=== PATIENT | male | born 1965 | race Caucasian/White ===

== ENCOUNTER → 2021-03-29 14:26 | Outpatient (BNVA) | payer OTHER, SELFPAY | PROVIDERS: PCP Internal Medicine; Visit Provider Urology ==

== ENCOUNTER 2021-04-03 12:16 | Day surgery (SDC) | payer OTHER, SELFPAY ==
--- NOTE | ~2021-04-03 | FL_ITS ---
EXAMINATION: XR FLUOROSCOPY WITH IMAGES CLINICAL INFORMATION: Left kidney stone. COMPARISON: None. TECHNIQUE: Fluoroscopy performed by Dr. Tyler Baez Fluoroscopy time: 53.5 seconds DAP: 21.93 mGycm2 Images: 3 FINDINGS: 3 images obtained in the OR reveal contrast opacifying the left kidney pelvis and the proximal ureter. The subsequent images reveal a guidewire and the left kidney pelvis and likely ureteral stent being inserted with its tip in the proximal ureter. FL/FL guidance in OR IMPRESSION: Fluoroscopy was provided to Dr. Tyler Baez during urographic procedure.
[2021-04-03 14:14] VITALS: BP 146/88; PULSE 68; RESP 16; TEMP 36.5; O2SAT 98; BMI 31.3
[2021-04-03 14:30] LABS: COVID-19 Test Negative (Negative)
--- NOTE | 2021-04-03 15:52 | P.HPSUR_ITS ---
Pre-Procedural Eval Section A Date of Service: 04/03/21 Section B Chief Complaint: kidney stone Details of Present Illness: Left renal stone Relevant Social History: None Present Medications: see Short Stay Collaborative assessment Medical History: No relevant PMH History of Previous Operations: No relevant previous surgery Allergies: Allergies Allergy/AdvReac Type Severity Reaction Status Date / Time Rymqjau-Edd-Rby Reductase AdvReac Unknown Verified 04/03/21 14:12 Inhibitor Review of Systems Sugical H&P ROS: Negative: Constitution, Cardiovascular, Respiratory, Neurological, Psychiatric, Hem-Onc, Allergic/Immunologic, Gastrointestinal, Genitourinary, Musculoskeletal, Integumentary, Endocrine and Eyes/Ears/Nose/Throat Exam Surgical H&P Exam: Normal: HEENT, Normal: Heart, Normal: Lungs, Normal: E xtremities, Normal: Abdomen, Normal: Skin and Normal: Neurological Plan Diagnosis/Plan: Unchanged (Cystoscopy left ureteroscopy, left laser lithotripsy, stone basketing, stent placement) I have reviewed the history and physical and performed a pertinent physical examination on my patient. No changes have occurred unless specified.
[2021-04-03] MEDS: levoFLOXacin 500 MG TABLET PO (16:12)
--- NOTE | 2021-04-03 16:48 | P.CONAN_ITS ---
[facility] Active Problems Active Problems: All Active Problems (Updated 04/03/21 @ 14:09 by Saba [email or web address]) Nephrolithiasis (Acute) BPH w urinary obs/LUTS (Acute) Past Medical History Medical History HTN (hypertension) Family History Family history of problems with anesthesia: No Surgical History Surgical History History of appendectomy History of knee replacement procedure of right knee S/P ACL repair History of Problems with Anesthesia: No Social History Social History Alcohol intake: never Patient Tobacco Use Status: Former Tobacco user Quit Date: 1999 Tobacco use type: Cigarette Years Smoked: 25 Smoked in Last 30 Days: No Use of substances other than those prescribed or required for medical reasons: Yes Substance Use Frequency: Daily Are you DNR?: No Advance Directives: No Advance Directives Information Provided: Yes Meds Allergies Allergy/AdvReac Type Severity Reaction Status Date / Time Mkqhmng-Dbx-Uvo Reductase AdvReac Unknown Verified 04/03/21 14:12 Inhibitor Active Medications: Current Medications Generic Name Dose Route Start Last Admin Trade Name Freq PRN Reason Stop Dose Admin Lactated Ringer's 1,000 mls @ 20 mls/hr 04/03/21 17:00 Lr IVCONT .Q24H [facility] Home Medications Medication Instructions Recorded Confirmed Last Taken Type amlodipine 5 mg tablet 5 mg PO DAILY 03/29/21 04/03/21 05:30 History ezetimibe 10 mg tablet 10 mg PO DAILY 03/29/21 04/03/21 05:30 History levofloxacin 500 mg tablet 500 mg PO DAILY 03/29/21 Unknown History lisinopril 40 mg tablet 40 mg PO DAILY 03/29/21 04/03/21 05:30 History methylprednisolone 4 mg tablets in mg PO 03/29/21 Unknown History a dose pack nabumetone 750 mg tablet 750 mg PO BID 03/29/21 Unknown History tamsulosin 0.4 mg capsule 0.4 mg PO DAILY 03/29/21 04/03/21 05:30 History Advil 04/03/21 04/03/21 05:30 History 400 mg Exam Exam Date and Time: April 03, 2021 1648 Height,Weight and Vital Signs: Height 5 ft 7 in Weight 90.718 kg Last Vital Signs Temp 97.7 F 04/03/21 14:14 Pulse 68 04/03/21 14:14 Resp 16 04/03/21 14:14 BP 146/88 H 04/03/21 14:14 Pulse Ox 98 04/03/21 14:14 Pertinent Lab Results Pertinent Lab Results: Laboratory Tests 04/03/21 14:04 COVID-19 (THOR) Negative COVID-19 Clin Com See Note Airway Mallampati Class: II TM Dist: >3cm Neck ROM: Full Heart: rrr Lungs: cta Assessment and Plan Assessment Anesthesia Assessment: Anesthesia Plan Discussed and Chart Reviewed Final Anesthetic Review Family History of Problems with Anesthesia: No History of Problems with Anesthesia: No NPO: Yes ASA Class: II Final Preanesthetic Review: No Changes in Pt Med Stat, Meds/Allgs Chart Reviewed, Consent Obtained/Reviewed and Anes Risks/Benef Reviewed Patient Risk: Low Procedure Risk: Low Assessment/Block/Sedation in SS: Assess/Block/Sedation-SS Anesthetic Plan Anesthetic Plan: GA Disposition: Standard PACU
[2021-04-03] MEDS: Lactated Ringers 1,000 ML 20 ML IVCONT (17:08)
[2021-04-03 18:30] VITALS: BP 140/90; PULSE 72; RESP 17; TEMP 36.4; O2SAT 98
[2021-04-03 18:32] VITALS: BP 144/88; PULSE 72; RESP 18; O2SAT 97
[2021-04-03] MEDS: Phenazopyridine HCL 100 MG TABLET PO (18:39)
[2021-04-03 18:40] VITALS: BP 149/87; PULSE 71; RESP 16; O2SAT 95
[2021-04-03 18:45] VITALS: BP 149/87; PULSE 72; RESP 16; O2SAT 97
[2021-04-03 18:50] VITALS: BP 144/88; PULSE 68; RESP 16; O2SAT 97
[2021-04-03] MEDS: oxyCODONE HCl Immed Release 5 MG TABLET PO (19:17)
--- NOTE | 2021-04-03 19:40 | PC.NURSE ---
patient expressing urge to void. states it's cramping. patient ambulated to [facility] bathroom and unable to void. patient dressed and ready to go home but wanted to attempt to void again. after a second unsuccessful attempt, Dr. Baez paged and bladder scan was performed. Bladder scan was 37ml and communicated to Dr. Baez. orders to follow
[2021-04-03] MEDS: Ketorolac Tromethamine 15 MG/ML VIAL 30 MG IVPUSH (19:54)
[2021-04-08 00:41] LABS: Stone Source KIDNEY
--- NOTE | 2021-04-19 11:03 | P.OP_ITS ---
Operative Note Operative Note Date of Service: 04/03/21 Narrative: PreOperative Diagnosis: Left proximal ureteric stone Post Operative Diagnosis: Left mid ureteric stone Procedure: - cystoscopy, retrograde - left dilatation of ureteric orifice under fluoroscopy - left ureteroscopy, laser lithotripsy, stone basketing - left stent placement Surgeon: Dr Tyler Baez Anesthesia: General Indications for procedure: This is a 55-year-old male. Seen in the emergency room with a left proximal ureteric 9 mm stone. Persistent pain. Recommendation for ureteroscopy with laser lithotripsy and stent placement. He is aware of the risks and benefits. Procedure: After informed consent was verified patient was brought to the operating placed in supine position. Anesthesia was administered per protocol. Patient was placed in modified dorsal lithotomy position and prepped and draped in a sterile fashion. Safety pause time-out and side of surgery confirmed. Antibiotics confirmed. Twenty-two Romanian cystoscope inserted per urethra. No abnormality noted the anterior posterior urethra. Bladder was entered and both ureteric orifices normal position. Open-ended catheter was used to perform retrograde on the left side. Filling defects seen in the mid to distal ureter. Sensor guidewire placed without difficulty. The left ureteric orifice was then dilated using a Ck dilator. Semi rigid ureteroscopy was performed. Stone was encountered alongside the Sensor guidewire. Using a a holmium laser the stone was broken into small pieces. These were removed using a sure catch basket. After multiple passes had been made ensuring the ureter was free from debris a 6 Romanian by 24 cm stent was placed without difficulty. Good coil seen within the renal pelvis and in the bladder. Patient tolerated the procedure well was extubated in the operating room transferred in stable condition to the recovery area. Pathology: Stones Drains: 6 Romanian by 24 cm double-J catheter
== END 2021-04-03 18:46 | disposition home or self-care (01) ==
PROVIDERS: Anesthesiology; PCP Pediatrics; Visit Provider Urology
PROC: (CPT 52356; principal; 2021-04-03 15:50)
DX: N20.1 Calculus of ureter (principal); Z87.442 Personal history of urinary calculi; N40.1 Benign prostatic hyperplasia with lower urinary tract symptoms; N13.8 Other obstructive and reflux uropathy; I10 Essential (primary) hypertension; Z79.899 Other long term (current) drug therapy; Z88.8 Allergy status to other drugs, medicaments and biological substances; Z20.822 Contact with and (suspected) exposure to COVID-19; Z96.651 Presence of right artificial knee joint; Z87.891 Personal history of nicotine dependence
CPT/HCPCS: 52356; 52352; 36415; 82365; 87635; 88300; C1769; C2617; J1885; J2250; J3010; Q9967

== ENCOUNTER → 2021-04-14 12:43 | Outpatient (BNVA) | payer OTHER, SELFPAY | PROVIDERS: PCP Pediatrics; Visit Provider Urology ==

== ENCOUNTER 2021-06-06 15:43 | Outpatient (REF) | payer OTHER, SELFPAY ==
--- NOTE | ~2021-06-06 | US_ITS ---
EXAMINATION: US RETROPERITONEAL LIMITED (RENAL ONLY) CLINICAL INFORMATION: Calculus of kidney. COMPARISON: None TECHNIQUE: Real-time imaging of the kidneys. FINDINGS: RIGHT KIDNEY: 11.1 x 7.0 x 5.2 cm (SAG x AP x TRV). The kidney is normal in size, contour, and echogenicity. Renal cortical thickness is normal. No calculi or focal parenchymal lesions. No hydronephrosis. There are multiple punctate echogenic calcifications seen without twinkle artifact. LEFT KIDNEY: 11.5 x 6.3 x 5.4 cm (SAG x AP x TRV). The kidney is normal in size, contour, and echogenicity. Renal cortical thickness is normal. No renal calculi or hydronephrosis. There are anechoic cysts. Midpole cyst medially measures 4.3 x 5.0 x 4.0 cm. An upper pole cyst measures 1.1 x 0.8 x 0.7 cm. There is mild pelvic fullness seen. US/US renal BI IMPRESSION: Multiple punctate calcifications seen throughout the right kidney. No echogenic stone or hydronephrosis. Left renal cyst and multiple punctate calcifications without caliectasis or hydronephrosis.
== END 2021-06-06 15:44 | disposition home or self-care (01) ==
LOC: HO.US 15:43
PROVIDERS: PCP Pediatrics; Visit Provider Urology
DX: N20.0 Calculus of kidney (principal)
CPT/HCPCS: 76775

== ENCOUNTER → 2021-06-14 14:25 | Outpatient (BNVA) | payer OTHER, SELFPAY | PROVIDERS: PCP Pediatrics; Visit Provider Urology ==

== ENCOUNTER 2022-02-01 08:22 | Outpatient (REF) | payer OTHER, SELFPAY ==
--- NOTE | ~2022-02-01 | US_ITS ---
EXAMINATION: US RETROPERITONEAL LIMITED (RENAL ONLY) CLINICAL INFORMATION: Calculus of kidney. COMPARISON: Renal ultrasound 06/06/2021. TECHNIQUE: Real-time imaging of the kidneys. FINDINGS: RIGHT KIDNEY: 10.6 x 5.3 x 5.7 cm (SAG x AP x TRV). The kidney is normal in size, contour, and echogenicity. Renal cortical thickness is normal. No focal parenchymal lesions or hydronephrosis. Within the lower pole there is an echogenic focus which may represent a nonobstructing 3 mm calculus. There are multiple other echogenic foci present. LEFT KIDNEY: 13.2 x 6.0 x 5.8 cm (SAG x AP x TRV). The kidney is normal in size, contour, and echogenicity. Renal cortical thickness is normal. Within the midpole there is a conglomerate of calculi measuring approximately 1.4 x 0.4 x 1.1 cm in size. There is minimal caliectasis present. Within the lower pole there is again noted to be a 4.7 x 5.2 x 4.5 cm cyst. Previously noted upper pole cyst is not appreciated on this study. US/US renal BI IMPRESSION: No significant obstructive uropathy. Bilateral nephrolithiasis. Left renal lower pole cyst.
== END 2022-02-01 08:23 | disposition home or self-care (01) ==
LOC: HO.HMGCX 08:22
PROVIDERS: Visit Provider Urology
DX: N20.0 Calculus of kidney (principal)
CPT/HCPCS: 76775

== ENCOUNTER 2022-04-02 09:40 | Day surgery (SDC) | payer OTHER, SELFPAY ==
[2022-04-02] VITALS (9 sets, daily range): BP systolic 140–178; BP diastolic 81–99; PULSE 63–73; RESP 12–20; TEMP 36.1–36.3; O2SAT 95–97; BMI 32.1
--- NOTE | ~2022-04-02 | FL_ITS ---
EXAMINATION: XR FLUOROSCOPY WITH IMAGES CLINICAL INFORMATION: Urinary tract calculi. Right calculus. COMPARISON: Renal ultrasound 02/01/2022, fluoroscopy with spot images 04/03/2021 TECHNIQUE: Fluoroscopy performed by Dr. Tyler Baez. Fluoroscopy time: 42 seconds. Cumulative Dose: 16.11 mGy. Images: 1. FINDINGS: There is a catheter/stent overlying the right urinary tract with proximal end in region of right renal fossa. FL/FL guidance in OR IMPRESSION: Fluoroscopy for urologic procedure.
--- NOTE | 2022-04-02 11:43 | P.CONAN_ITS ---
[facility] Active Problems Active Problems: All Active Problems (Updated 06/14/21 @ 15:07 by Tyler Baez MD) Erectile dysfunction (Acute) Nephrolithiasis (Acute) BPH w urinary obs/LUTS (Acute) Past Medical History Medical History HTN (hypertension) Functional capacity: independent ambulation Family History Family history of problems with anesthesia: No Surgical History Surgical History History of appendectomy History of knee replacement procedure of right knee S/P ACL repair History of Problems with Anesthesia: No Social History Social History Alcohol intake: never Patient Tobacco Use Status: Former Tobacco user Quit Date: years ago Tobacco use type: Cigarette Years Smoked: 25 Use of substances other than those prescribed or required for medical reasons: No Are you DNR?: No Advance Directives: No Advance Directives Information Provided: Yes Meds Allergies Allergy/AdvReac Type Severity Reaction Status Date / Time Oathqbs-TYF-CaQ Reductase AdvReac Unknown Verified 02/13/22 08:40 Inhibitor [Bribtxs-Hxm-Wyk Reductase Inhibitor] Active Medications: Current Medications Levofloxacin (Levaquin) 500 mg in 100 mls @ 100 mls/hr IV PREOP ONE Stop: 04/02/22 12:04 Home Medications Medication Instructions Recorded Confirmed Last Taken Type amlodipine 5 mg tablet 5 mg PO DAILY 03/29/21 04/03/21 05:30 History ezetimibe 10 mg tablet 10 mg PO DAILY 03/29/21 04/03/21 05:30 History levofloxacin 500 mg tablet 500 mg PO DAILY 03/29/21 Unknown History lisinopril 40 mg tablet 40 mg PO DAILY 03/29/21 04/03/21 05:30 History methylprednisolone 4 mg tablets in mg PO 03/29/21 Unknown History a dose pack nabumetone 750 mg tablet 750 mg PO BID 03/29/21 Unknown History Advil 04/03/21 04/03/21 05:30 History 400 mg Exam Exam Date and Time: April 02, 2022 1144 Height,Weight and Vital Signs: Height 5 ft 7 in Weight 92.986 kg Last Vital Signs Temp 97.2 F 04/02/22 10:16 Pulse 63 04/02/22 10:16 Resp 18 04/02/22 10:16 BP 178/99 H 04/02/22 10:16 Pulse Ox 96 04/02/22 10:16 O2 Del Method 04/02/22 10:16 Airway Mallampati Class: III TM Dist: >3cm Neck ROM: Full Loose/Missing/Broken Teeth: No Heart: RRR Lungs: CTA Assessment and Plan Assessment Anesthesia Assessment: Anesthesia Plan Discussed and Chart Reviewed Final Anesthetic Review Family History of Problems with Anesthesia: No History of Problems with Anesthesia: No NPO: Yes ASA Class: II Final Preanesthetic Review: Meds/Allgs Chart Reviewed, Consent Obtained/Reviewed and Anes Risks/Benef Reviewed Patient Risk: Low Procedure Risk: Low Anesthetic Plan Anesthetic Plan: GA Disposition: Standard PACU
--- NOTE | 2022-04-02 12:36 | MHC.SHP ---
Pre-Procedural Eval Section A Date of Service: 04/02/22 The patient is an INPATIENT: No Changes since office visit: No Cold of Flu in the past 2 weeks, No New Medical Problems, No Changes in Medication and No Patient answered all questions The History & Physical has been completed within 30 days and I have reviewed it.: No Section B Chief Complaint: Calculus of kidney Details of Present Illness: bilateral stones with right sided symptoms Relevant Family History (Specify if Yes): No Relevant Social History: None Present Medications: see Short Stay Collaborative assessment Medical History: No relevant PMH History of Previous Operations: Relevant previous surgery/procedure and date(s) Allergies: Allergies Allergy/AdvReac Type Severity Reaction Status Date / Time Jxoocva-EIV-PvK Reductase AdvReac Unknown Verified 02/13/22 08:40 Inhibitor [Hjqitza-Xcb-Pjk Reductase Inhibitor] Review of Systems Sugical H&P ROS: Negative: Constitution, Cardiovascular, Respiratory, Neurological, Psychiatric, Hem-Onc, Allergic/Immunologic, Gastrointestinal, Genitourinary, Musculoskeletal, Integumentary, Endocrine and Eyes/Ears/Nose/Throat Exam Surgical H&P Exam: Normal: HEENT, Normal: Heart, Normal: Lungs, Normal: Extremities, Normal: Abdomen, Normal: Skin and Normal: Neurological Plan Diagnosis/Plan: Unchanged (right USR with retrograde and laser) I have reviewed the history and physical and performed a pertinent physical examination on my patient. No changes have occurred unless specified.
[2022-04-02] MEDS: Acetaminophen 325 MG TABLET 650 MG PO (12:57)
--- NOTE | 2022-04-02 13:35 | P.OP_ITS ---
Operative Note Operative Note Date of Service: 04/02/22 Narrative: PreOperative Diagnosis: Right renal stones Post Operative Diagnosis: Right renal stones with evidence of prior right stone formation in passage Procedure: - cystoscopy, right retrograde - right dilatation of ureteric orifice under fluoroscopy - right ureteroscopy, laser lithotripsy, stone basketing - right stent placement Surgeon: Dr Tyler Baez Anesthesia: General Indications for procedure: Ultrasound with bilateral stones. Right side with some degree of symptomatolo gy. Procedure: After informed consent was verified patient was brought to the operating placed in supine position. Anesthesia was administered per protocol. Patient was plac ed in modified dorsal lithotomy position and prepped and draped in a sterile fashion. Safety pause time-out and side of surgery confirmed. Antibiotics confirmed. 22 Mongolian cystoscope was inserted per urethra. Bladder was normal in its entirety. Both ureteric orifices were in normal position. The right ureteric orifice was cannulated and a retrograde examination was performed. No clear filling defects seen . A Sensor guidewire was placed up to the level of the renal pelvis under fluoroscopy. The rigid cystoscope was removed and the inner cannula of ureteric access sheath was used under fluoroscopy to dilate the ureteric orifice. The ureteric access sheath was placed and the inner cannula with access wire removed. The digital flexible ureteral scope was placed. Small stones were encountered in the lower pole. There was clear evidence of felt submucosal stones in the calyces. Also evidence of prior stone passage. The lower pole stone was unable to be captured by a basket and decision was made to place stent A 6 Mongolian by 24 cm double-J stent was placed into the renal pelvis and bladder under a combination of fluoroscopy and direct visualization. The bladder was emptied. The patient tolerated the procedure well and was extubated in the operating room, and transferred in stable condition to the recovery area. Pathology: None Drains: Stent as above
[2022-04-02] MEDS: oxyCODONE HCl Immed Release 5 MG TABLET PO (14:09)
[2022-04-02] MEDS: Phenazopyridine HCL 100 MG TABLET PO (14:10)
[2022-04-02] MEDS: fentaNYL citrate/PF 100 MCG/2 ML VIAL 50 MCG IVPUSH (14:11)
== END 2022-04-02 15:53 | disposition home or self-care (01) ==
PROVIDERS: PCP Internal Medicine; Visit Provider Urology
PROC: (CPT 52351; principal; 2022-04-02 12:10)
DX: N20.0 Calculus of kidney (principal); I10 Essential (primary) hypertension
CPT/HCPCS: 52351; 52332; C1758; C1769; C1894; C2617; J1100; J1885; J1956; J2250; J2405; J3010; Q9965

== ENCOUNTER → 2022-04-10 12:56 | Outpatient (BNVA) | payer OTHER, SELFPAY | PROVIDERS: PCP Internal Medicine; Visit Provider Urology | DX: N40.1 Benign prostatic hyperplasia with lower urinary tract symptoms (principal); N13.8 Other obstructive and reflux uropathy; N39.0 Urinary tract infection, site not specified; N20.0 Calculus of kidney; A49.9 Bacterial infection, unspecified | CPT/HCPCS: 52310 ==

== ENCOUNTER 2022-07-17 14:50 | Outpatient (REF) | payer OTHER, SELFPAY ==
--- NOTE | ~2022-07-17 | US_ITS ---
EXAMINATION: US RETROPERITONEAL LIMITED (RENAL ONLY) CLINICAL INFORMATION: Calculus of kidney. COMPARISON: Renal ultrasound 02/01/2022 and 06/06/2021. TECHNIQUE: Real-time imaging of the kidneys. FINDINGS: RIGHT KIDNEY: 11.0 x 6.6 x 5.6 cm (SAG x AP x TRV). The kidney is normal in size, contour, and echogenicity. Renal cortical thickness is normal. There is a 2 mm lower pole nonobstructing echogenic focus consistent with a calculus. No focal parenchymal lesions or hydronephrosis. LEFT KIDNEY: 11.9 x 6.0 x 5.3 cm (SAG x AP x TRV). The kidney is normal in size, contour, and echogenicity. Renal cortical thickness is normal. There is a midpole 3 mm echogenic focus consistent with a nonobstructing calculus. No hydronephrosis. Two midpole cysts are noted, the largest measuring 4.7 x 6.3 x 4.5 cm with one additional subcentimeter cortical cyst. No solid renal masses. US/US renal BI IMPRESSION: Bilateral nonobstructing renal calculi again noted. Left-sided renal cysts which need no additional imaging or followup.
== END 2022-07-17 14:51 | disposition home or self-care (01) ==
LOC: HO.HMGCX 14:50
PROVIDERS: PCP Internal Medicine; Visit Provider Urology
DX: N20.0 Calculus of kidney (principal)
CPT/HCPCS: 76775

== ENCOUNTER → 2022-07-26 13:21 | Outpatient (BNVA) | payer OTHER, SELFPAY | PROVIDERS: PCP Internal Medicine; Visit Provider Urology | DX: Z13.89 Encounter for screening for other disorder (principal) ==

== ENCOUNTER 2023-07-17 15:22 | Outpatient (REF) | payer OTHER, SELFPAY ==
--- NOTE | ~2023-07-17 | US_ITS ---
EXAMINATION: US RETROPERITONEAL LIMITED (RENAL ONLY) CLINICAL INFORMATION: Calculus of kidney. COMPARISON: Renal ultrasound 07/17/2022 and 02/01/2022. TECHNIQUE: Real-time imaging of the kidneys. Limited visualization due to bowel gas. FINDINGS: RIGHT KIDNEY: 10.2 x 6.4 x 5.6 cm (SAG x AP x TRV). No hydronephrosis. Multiple tiny echogenic nonshadowing foci may represent nonobstructive calculi. Renal cortical thickness is normal. Limited visualization. LEFT KIDNEY: 12.7 x 6.2 x 6.0 cm (SAG x AP x TRV). No hydronephrosis. Multiple tiny echogenic nonshadowing foci may represent nonobstructive calculi. Renal cortical thickness is normal. Limited visualization. Rep-jc-xepqk pole 5.1 x 4.7 x 5.1 cm cyst previously measured 4.7 x 6.3 x 4.5 cm on 07/23/2022. US/US renal BI IMPRESSION: 1. Multiple tiny bilateral echogenic nonshadowing foci may represent nonobstructive calculi. No hydronephrosis. 2. Left renal 5.1 cm cyst redemonstrated.
== END 2023-07-17 15:23 | disposition home or self-care (01) ==
LOC: HO.HMGCX 15:22
PROVIDERS: PCP Internal Medicine; Visit Provider Urology
DX: N20.0 Calculus of kidney (principal)
CPT/HCPCS: 76775

== ENCOUNTER 2023-07-24 14:31 | Outpatient (AMB) | payer BC, SELFPAY ==
--- NOTE | 2023-07-24 14:39 | MHC.OFFVIS ---
Intake Intake Visit Reasons: 1Y US(US Done/No psa) Intake Note: Patient is Present for Follow Up US Urology Medication: Tamsulosin, Sildenafil, Vitamin B6 Antibiotic Allergies:None Blood Thinners: None PVR: 16 Allergies Skghxbw-TAT-SuT Reductase Inhibitor [Htknnhe-Pzp-Pfi Reductase Inhibitor] Adverse Reaction (Verified 07/24/23 14:42) Unknown Medication List - Last Reconciled 07/24/23 by Tyler Baez MD [Advil ] allopurinol 100 mg PO DAILY 90 days amlodipine 5 mg PO DAILY atorvastatin 10 mg PO DAILY ezetimibe 10 mg PO DAILY levofloxacin 500 mg PO DAILY lisinopril 40 mg PO DAILY methylprednisolone mg PO nabumetone 750 mg PO BID naproxen 500 mg PO BID PRN 7 days phenazopyridine (Pyridium) 100 mg PO TID PRN 4 days phenazopyridine (Pyridium) 100 mg PO TID PRN 4 days pyridoxine (vitamin B6) 100 mg PO DAILY 90 days sildenafil 100 mg PO DAILY PRN 30 days sulfamethoxazole-trimethoprim 800-160 mg (Bactrim DS) 1 tab PO BID 5 days tamsulosin 0.4 mg PO BEDTIME 90 days HPI HPI Comments History of Present Illness Details Pepe is a pleasant male. He is a patient of Dr Reese. He is seen for the following urologic conditions - nephrolithiasis - lower urinary tract symptoms - erectile dysfunction PVR 16 cc 12 month follow-up Primary care follow-up PSA Needs refill of medications for kidney stones, lower urinary tract symptoms, erectile dysfunction Nephrolithiasis calcium oxalate monohydrate Here for follow-up for annual stone follow-up Uses allopurinol, vitamin B6 Stone interventions - 04/11 left proximal ureteroscopy Stone composition - 04/11 calcium oxalate monohydrate 80% Imaging - 06/11 renal ultrasound 3 cm cyst left side, punctate stones right side, no stones left - 07/12 renal ultrasound bilateral punctate stone - 07/13 renal ultrasound Multiple tiny bilateral echogenic nonshadowing foci may represent nonobstructive calculi. No hydronephrosis Therapeutic plan - encourage fluid intake, lemon therapy, surveillance imaging Lower urinary tract symptoms Here for annual follow-up Good response to daily tamsulosin Effective emptying with good stream Erectile dysfunction Good response to on demand sildenafil 100 mg PFS Medical History HTN (hypertension) Surgical History S/P ACL repair History of appendectomy History of knee replacement procedure of right knee Social History Alcohol intake: never Comment: patient reports urge to void but no pain Patient Tobacco Use Status: Former Tobacco user Quit Date: years ago Tobacco use type: Cigarette Years Smoked: 25 Review of Systems Const Denies chills and Denies fever(s) Card Reports no additional complaints and Denies syncope Resp Denies cough GI Denies abdominal pain and Denies heartburn Reports as per HPI and Denies change in libido Neuro Denies syncope Psych Denies change in libido Endo Denies change in libido Physical Exam Const General: cooperative, healthy appearing, comfortable and no acute distress Orientation/consciousness: patient oriented x3 HEENT Face and sinus: Yes normal facial exam Mouth: moist mucous membranes Neck Neck: Yes normal visual inspection, Yes full ROM and Yes trachea midline Chest Chest palpation & inspection: normal inspection of the chest Resp Effort & Inspection: normal respiratory effort, able to speak in complete sentences and no respiratory distress GI Inspection: Yes normal to inspection Back/Spine/Pelvis Cervical Spine: normal cervical lordosis Thoracic/Lumbar Spine: thoracic and lumbar spine normal to inspection Skin General skin exam: no rashes or lesions noted Neuro General: patient oriented x3, gait normal, tone normal and moves all extremities Extrem General: Yes normal to inspection and Yes capillary refill normal Office Procedures Post Void Residual Post Residual Void Post Void Residual (PVR): 16 [id number] Void Residual by ultrasound Assessment & Plan Assessment & Plan (1) Nephrolithiasis: Code(s): N20.0 - Calculus of kidney (2) Erectile dysfunction: Code(s): N52.9 - Male erectile dysfunction, unspecified Qualifiers: Erectile dysfunction type: vasculogenic Vasculogenic erectile dysfunction type: due to arterial insufficiency Qualified Code(s): N52.01 - Erectile dysfunction due to arterial insufficiency (3) BPH w urinary obs/LUTS: Code(s): N40.1 - Benign prostatic hyperplasia with lower urinary tract symptoms; N13.8 - Other obstructive and reflux uropathy Plan Refill medications Twelve month follow-up Orders: Orders AMB Post Void Residual by ultrasound Today N13.8 - Other obstructive and reflux uropathy, N40.1 - Benign prostatic hyperplasia with lower urinary tract symptoms Medications: Refilled pyridoxine (vitamin B6) 100 mg PO DAILY 90 tabs 3RF 90 days N20.0 - Calculus of kidney tamsulosin 0.4 mg PO BEDTIME 90 caps 3RF 90 days N13.8 - Other obstructive and reflux uropathy, N40.1 - Benign prostatic hyperplasia with lower urinary tract symptoms allopurinol 100 mg PO DAILY 90 tabs 3RF 90 days N20.0 - Calculus of kidney Patient Instructions: Imaging studies, laboratory and physical exam results were discussed and reviewed in detail. No major barriers to patient understanding were identified. An opportunity to ask questions regarding the treatment plan was provided. All questions were answered. The patient expressed understanding and agreement with the above treatment plan. The patient is aware they should contact our office by phone for worsening of their current condition or the appearance of new urologic symptoms. Compliance is encouraged with any medications and followup testing that is ordered. It is a privilege to participate in the urologic care of your patient. If you have any questions or concerns regarding treatment for the above conditions, or other urologic issues, please do not hesitate to contact me. The office telephone contact is [phone]. This note is constructed using voice recognition software. While every effort has been made to ensure accuracy emg technician errors may have been included. Yours sincerely, Dr Tlyer Baez MD, FATMATA [facility] - Urology Providers of Expert, Compassionate Care for the Genitourinary System Coding Level of Care Code Est Pt Level 4 (50246) Diagnoses Nephrolithiasis N20.0 Erectile dysfunction due to arterial insufficiency N52.01 Erectile dysfunction type: vasculogenic Vasculogenic erectile dysfunction type: due to arterial insufficiency BPH w urinary obs/LUTS N40.1; N13.8 CPT Codes Post Residual Void - PVR CPT Code: [id number] Void Residual by ultrasound ([id number])
== END 2023-07-24 15:11 | disposition home or self-care (01) ==
PROVIDERS: Visit Provider Urology
DX: N20.0 Calculus of kidney (principal); N52.01 Erectile dysfunction due to arterial insufficiency; N40.1 Benign prostatic hyperplasia with lower urinary tract symptoms; N13.8 Other obstructive and reflux uropathy
CPT/HCPCS: 99214

== ENCOUNTER → 2023-07-24 14:31 | Outpatient (BNVA) | payer BC, SELFPAY | PROVIDERS: Visit Provider Urology | DX: N20.0 Calculus of kidney (principal); N52.01 Erectile dysfunction due to arterial insufficiency; N40.1 Benign prostatic hyperplasia with lower urinary tract symptoms; N13.8 Other obstructive and reflux uropathy | CPT/HCPCS: 51798 ==

== ENCOUNTER 2024-09-01 15:21 | Outpatient (AMB) | payer BC, SELFPAY ==
--- NOTE | 2024-09-01 15:28 | MHC.OFFVIS ---
Intake Visit Reasons: 1y follow up Intake Note: Patient is Present for 1Y Follow Up Urology Medication: Tamsulosin, Sildenafil, Vitamin B6,ALLOPURINOL Antibiotic Allergies:None Blood Thinners: None Corn Crop Supervisor Required: No Allergies Xmtntax-EUG-AiC Reductase Inhibitor [Ztcfloj-Pak-Mxs Reductase Inhibitor] Adverse Reaction (Verified 09/01/24 15:29) Unknown HPI Comments Details: Pepe is a pleasant male. He is a patient of Dr Reese. He is seen for the following urologic conditions - nephrolithiasis - lower urinary tract symptoms - erectile dysfunction setting of diabetes PVR 0 cc 12 month follow-up Effective bladder emptying renew tamsulosin Will start daily tadalafil in addition to on demand sildenafil Check testosterone in 10 weeks Continue stone medications Nephrolithiasis calcium oxalate monohydrate Here for follow-up for annual stone follow-up Uses allopurinol, vitamin B6 Stone interventions - 04/11 left proximal ureteroscopy Stone composition - 04/11 calcium oxalate monohydrate 80% Imaging - 06/11 renal ultrasound 3 cm cyst left side, punctate stones right side, no stones left - 07/12 renal ultrasound bilateral punctate stone - 07/13 renal ultrasound Multiple tiny bilateral echogenic nonshadowing foci may represent nonobstructive calculi. No hydronephrosis Therapeutic plan - encourage fluid intake, lemon therapy, surveillance imaging Lower urinary tract symptoms Here for annual follow-up Good response to daily tamsulosin Effective emptying with good stream Erectile dysfunction in setting of diabetes Prior good response to on demand sildenafil 100 mg PFSH Medical History HTN (hypertension) Surgical History S/P ACL repair History of appendectomy History of knee replacement procedure of right knee Social History Alcohol intake: never Comment: patient reports urge to void but no pain Patient Tobacco Use Status: Former Tobacco user Tobacco use type: Cigarette Years Smoked: 25 Review of Systems Const Denies chills and Denies fever(s) Card Reports no additional complaints and Denies syncope Resp Denies cough GI Denies abdominal pain and Denies heartburn Reports as per HPI and Denies change in libido Neuro Denies syncope Psych Denies change in libido Endo Denies change in libido Physical Exam Const General: cooperative, healthy appearing, comfortable and no acute distress Orientation/consciousness: patient oriented x3 HEENT Face and sinus: Yes normal facial exam Mouth: moist mucous membranes Neck Neck: Yes normal visual inspection, Yes full ROM and Yes trachea midline Chest Chest palpation & inspection: normal inspection of the chest Resp Effort & Inspection: normal respiratory effort, able to speak in complete sentences and no respiratory distress GI Inspection: Yes normal to inspection Back/Spine/Pelvis Cervical Spine: normal cervical lordosis Thoracic/Lumbar Spine: thoracic and lumbar spine normal to inspection Skin General skin exam: no rashes or lesions noted Neuro General: patient oriented x3, gait normal, tone normal and moves all extremities Extrem General: Yes normal to inspection and Yes capillary refill normal Assessment & Plan Assessment & Plan (1) Nephrolithiasis: Code(s): N20.0 - Calculus of kidney Category: Medical (2) BPH w urinary obs/LUTS: Code(s): N40.1 - Benign prostatic hyperplasia with lower urinary tract symptoms; N13.8 - Other obstructive and reflux uropathy Category: Medical (3) Erectile dysfunction associated with type 2 diabetes mellitus: Code(s): E11.69 - Type 2 diabetes mellitus with other specified complication; N52.1 - Erectile dysfunction due to diseases classified elsewhere Category: Medical Plan Three-month follow-up lab work tele Orders: Orders Prostate Specific Antigen 10 Weeks N52.01 - Erectile dysfunction due to arterial insufficiency Testosterone, Free/Total 10 Weeks N52.01 - Erectile dysfunction due to arterial insufficiency Medications: New tadalafil 5 mg PO DAILY 90 days 90 tabs 0RF bladder stability E11.69 - Type 2 diabetes mellitus with other specified complication, N52.1 - Erectile dysfunction due to diseases classified elsewhere Discontinued phenazopyridine (Pyridium) Discontinued Reason: Patient Completed Course 100 mg PO TID 4 days PRN 12 tabs 0RF spasm phenazopyridine (Pyridium) Discontinued Reason: Patient Completed Course 100 mg PO TID 4 days PRN 12 tabs 0RF Spasm sulfamethoxazole-trimethoprim 800-160 mg (Bactrim DS) Discontinued Reason: Patient Completed Course 1 tab PO BID 5 days 10 tabs 0RF A49.9 - Bacterial infection, unspecified, N39.0 - Urinary tract infection, site not specified Patient Instructions: This note is constructed using voice recognition software. While every effort has been made to ensure accuracy pallet assembler errors may have been included. Imaging studies, laboratory and physical exam results were discussed and reviewed in detail. No major barriers to patient understanding were identified. An opportunity to ask questions regarding the treatment plan was provided. All questions were answered. The patient expressed understanding and agreement with the above treatment plan. The patient is aware they should contact our office by phone for worsening of their current condition or the appearance of new urologic symptoms. Compliance is encouraged with any medications and followup testing that is ordered. It is a privilege to participate in the urologic care of your patient. If you have any questions or concerns regarding treatment for the above conditions, or other urologic issues, please do not hesitate to contact me. The office telephone contact is [phone]. Sincerely, Dr Tyler Baez MD, FATM[facility] - Urology Compassionate Specialist Care for the Genitourinary System Coding Level of Care Code Est Pt Level 4 (87101) Diagnoses Nephrolithiasis N20.0 BPH w urinary obs/LUTS N40.1; N13.8 Erectile dysfunction associated with type 2 diabetes mellitus E11.69; N52.1
== END 2024-09-01 16:02 | disposition home or self-care (01) ==
PROVIDERS: PCP Internal Medicine; Visit Provider Urology
DX: N20.0 Calculus of kidney (principal); N40.1 Benign prostatic hyperplasia with lower urinary tract symptoms; N13.8 Other obstructive and reflux uropathy; E11.69 Type 2 diabetes mellitus with other specified complication; N52.1 Erectile dysfunction due to diseases classified elsewhere
CPT/HCPCS: 99214

== ENCOUNTER → 2024-09-01 15:21 | Outpatient (BNVA) | payer BC, SELFPAY | PROVIDERS: PCP Internal Medicine; Visit Provider Urology ==

== ENCOUNTER 2025-06-08 06:14 | Outpatient (REF) | payer BC, SELFPAY ==
[2025-06-08 08:11] LABS: Prostate Specific Antigen 0.90 ng/mL (<0.05-4.0)
== END 2025-06-08 06:15 | disposition home or self-care (01) ==
LOC: HO.LAB 06:14
PROVIDERS: PCP Internal Medicine; Visit Provider Urology
DX: N52.01 Erectile dysfunction due to arterial insufficiency (principal); Z12.5 Encounter for screening for malignant neoplasm of prostate
CPT/HCPCS: 36415; 84153; 84402; 84403

== ENCOUNTER 2025-06-30 15:29 | Outpatient (AMB) | payer BC, SELFPAY ==
--- NOTE | 2025-06-30 15:30 | MHC.OFFVIS ---
Intake Visit Reasons: PSA/Testo Results(Pending) Intake Note: Reason for Visit: Telehealth PSA/Testosterone Results Urology Meds: Tadalafil, Sildenafil, Allopurinol, Tamsulosin, Vitamin B6 Blood Thinners: None Labs: PSA- 0.90 Total Testosterone: 412 (06/08/2025) Imaging: None Last PVR: 16ml Birthing Nurse Required: No Accompanied by: Self / Same As Patient Allergies Oyzueei-LYG-MlA Reductase Inhibitor (Lvraxpf-Mii-Tts Reductase Inhibitor) Adverse Reaction (Verified 06/30/25 15:30) Unknown HPI Comments Details: Pepe is a pleasant male. He is a patient of Dr Reese. He is seen for the following urologic conditions - nephrolithiasis - lower urinary tract symptoms - erectile dysfunction setting of diabetes Telemedicine Evaluation 15 min Consultation [employer] Carissa Video Good response to daily tadalafil plus on demand 12m f/u renal [facility] Labs - 06/15 T 410 P 0.9 Nephrolithiasis calcium oxalate monohydrate Here for follow-up for annual stone follow-up Uses allopurinol, vitamin B6 Stone interventions - 04/11 left proximal ureteroscopy Stone composition - 04/11 calcium oxalate monohydrate 80% Imaging - 06/11 renal ultrasound 3 cm cyst left side, punctate stones right side, no stones left - 07/12 renal ultrasound bilateral punctate stone - 07/13 renal ultrasound Multiple tiny bilateral echogenic nonshadowing foci may represent nonobstructive calculi. No hydronephrosis Therapeutic plan - encourage fluid intake, lemon therapy, surveillance imaging Lower urinary tract symptoms Here for annual follow-up Good response to daily tamsulosin Effective emptying with good stream Erectile dysfunction in setting of diabetes Prior good response to on demand sildenafil 100 mg [facility] Medical History Erectile dysfunction HTN (hypertension) Surgical History S/P ACL repair History of appendectomy History of knee replacement procedure of right knee Social History Alcohol intake: never Comment: patient reports urge to void but no pain Patient Tobacco Use Status: Former Tobacco user Tobacco use type: Cigarette Years Smoked: 25 Review of Systems Const All systems reviewed & are unremarkable except as noted in HPI and below Reports no additional complaints Resp Reports no additional complaints GI Reports no additional complaints Reports as per HPI Musc Reports no additional complaints Physical Exam Telemedicine evaluation Appropriate responses Regular breathing rate and rhythm HEENT Head: Yes normal to inspection Ears: hearing grossly normal bilaterally Eyes General: appearance normal, both eyes and all related structures Neck Neck: Yes normal visual inspection Chest Chest palpation & inspection: normal inspection of the chest Resp Effort & Inspection: normal respiratory effort and able to speak in complete sentences Telehealth Telehealth Telehealth Platform: [employer] Location of provider rendering services: practice address Location of patient: address on file Patient Identification confirmed using: Name, : Yes Telehealth method: video Patient verbally consented to treatment: Yes Patient verbally consented to billing insurance company: Yes Patient informed of any privacy concerns related to visit: Yes Minutes spent on Phone/Video with Pt.: 15 Assessment & Plan Assessment & Plan (1) Erectile dysfunction associated with type 2 diabetes mellitus: Code(s): E11.69 - Type 2 diabetes mellitus with other specified complication; N52.1 - Erectile dysfunction due to diseases classified elsewhere Category: Medical (2) Nephrolithiasis: Code(s): N20.0 - Calculus of kidney Category: Medical (3) BPH w urinary obs/LUTS: Code(s): N40.1 - Benign prostatic hyperplasia with lower urinary tract symptoms; N13.8 - Other obstructive and reflux uropathy Category: Medical Plan refill meds 12m f/u US Orders: Orders US renal BI 12 Months N20.0 - Calculus of kidney Medications: Refilled tadalafil 5 mg PO DAILY 90 tabs 3RF bladder stability 90 days E11.69 - Type 2 diabetes mellitus with other specified complication, N52.1 - Erectile dysfunction due to diseases classified elsewhere sildenafil administer 60 minutes before intended activity 100 mg PO DAILY PRN 30 tabs 1RF sexual activity 30 days N52.9 - Male erectile dysfunction, unspecified pyridoxine (vitamin B6) 50 mg PO DAILY 90 tabs 3RF 90 days N20.0 - Calculus of kidney Patient Instructions: This note is constructed using voice recognition software. While every effort has been made to ensure accuracy laboratory coordinator errors may have been included. Imaging studies, laboratory and physical exam results were discussed and reviewed in detail. No major barriers to patient understanding were identified. An opportunity to ask questions regarding the treatment plan was provided. All questions were answered. The patient expressed understanding and agreement with the above treatment plan. The patient is aware they should contact our office by phone for worsening of their current condition or the appearance of new urologic symptoms. Compliance is encouraged with any medications and followup testing that is ordered. It is a privilege to participate in the urologic care of your patient. If you have any questions or concerns regarding treatment for the above conditions, or other urologic issues, please do not hesitate to contact me. The office telephone contact is [phone]. Sincerely, Dr Tyler Baez MD, FATM[facility] - Urology Compassionate Specialist Care for the Genitourinary System Coding Level of Care Code Tele Est Pt Level 3 (45728) Add On Problem Visit Only Diagnoses Erectile dysfunction associated with type 2 diabetes mellitus E11.69; N52.1 Nephrolithiasis N20.0 BPH w urinary obs/LUTS N40.1; N13.8
--- OUTSIDE RECORDS SUMMARY | 2025-07-01 00:07 | XMS_ITS | Clinical Summary ---
Author Organization [facility] [address] [address] Address [address] [place] [address] Phone Care Team Providers Care Screen Printing Supervisor Name Role Phone Ramesh Reese MD Primary Care Provider [phone] Allergies No known active allergies Medications tamsulosin (FLOMAX) 0.4 mg 24 hr capsule 04/06/2024 Active metFORMIN (GLUCOPHAGE) 500 mg tablet 03/10/2024 Active lisinopril (PRINIVIL,ZESTRIL) 40 mg tablet 05/24/2024 Active atorvastatin (LIPITOR) 10 mg tablet 01/30/2024 Active amLODIPine (NORVASC) 10 mg tablet 06/21/2024 Active allopurinoL (ZYLOPRIM) 100 mg tablet 05/24/2024 Active Active Problems Problem Noted Date Diagnosed Date HTN (hypertension) 06/22/2024 Surgical History Surgery Date Site/Laterality Comments COLONOSCOPY at 48 y/o, normal per pt TOTAL KNEE ARTHROPLASTY Bilateral APPENDECTOMY Medical History Medical History Date Comments Hypertension Hyperlipidemia Diabetes mellitus (CMS/HCC V24, CMS/HCC V28) Kidney stones Family History Medical History Relation Name Comments Colon cancer Neg Hx Colon polyps Neg Hx Social History Tobacco Use Types Packs/Day Years Used Date Smoking Tobacco: Former Cigarettes Smokeless Tobacco: Never Tobacco Cessation:Counseling Given: Not Answered Alcohol Use Standard Drinks/Week Comments Never 0 (1 standard drink = 0.6 oz pur e alcohol) Interpersonal Safety Answer Date Record ed Physical Abuse Unrecognized value 08/21/2024 Verbal Abuse Unrecognized value 08/21/2024 Sex and Gender Information Value Date Recorded Sex Assigned at Male 08/19/2024 8:51 AM EST Legal Sex Male 5:45 AM EST Gender Identity Male 08/19/2024 8:51 AM EST Sexual Orientation Straight 08/19/2024 8: 51 AM EST Last Filed Vital Signs Vital Sign Reading Time Taken Comments Blood Pressure 124/80 08/21/2024 8:01 AM EST Pulse 66 08/21/2024 8:01 AM EST Temperature 36.3 C (97.3 F) 08/21/2024 7:41 AM EST Respiratory Rate 18 08/21/2024 8:01 AM EST Oxygen Saturation 99% 08/21/2024 8:01 AM EST Inhaled Oxygen Concentration - - Weight 90.7 kg (200 lb) 08/21/2024 6:55 AM EST Height 170.2 cm (5' 7 ) 08/21/2024 6:55 AM EST Body Mass Index 31.32 08/21/2024 6:55 AM EST Plan of Treatment Health Maintenance Due Date Last Done Comments Diabetes: Annual GFR (Glomerular Filtration Rate) 1965 Diabetes: Annual Foot Exam 11/30/1973 Diabetes: Annual Retina Eye Exam 11/30/1973 Cholesterol Screening (Lipid Panel) 05/18/2024 HIV Screening 05/18/2024 Hepatitis C Screening 05/18/2024 Social Influencers of Health Screening 05/18/2024 Diabetes: Annual Urine Albumin-Creatinine Ratio (uACR) 06/22/2024 Diabetes: Blood Sugar Control Test (HGBA1C) 06/22/2024 Hypertension/CHF/CAD Annual BMP Blood Test 06/22/2024 Depression Screening 07/22/2024 Zoster Vaccines (2 of 2) 08/19/2024 06/24/2024 COVID-19 Vaccine (3 - season) 2025 10/25/2020, 10/04/2020 Influenza Vaccine (#1) 2025 , 07/01/2023, 06/21/2022, Additional history exists DTaP,Tdap,and Td Vaccines (2 - Td or Tdap) 08/20/2027 08/20/2017 Colorectal Cancer Screening: Colonoscopy 08/21/2034 08/21/2024 RSV Immunization Adult Patients (1 - 1-dose 75+ series) 11/30/2038 Pneumococcal Vaccine: 50+ Years Completed 06/21/2022 HIB Vaccines Aged Out No longer eligi ble based on patient's age to complete this topic HPV Vaccines Aged Out No longer eligi ble based on patient's age to complete this topic Hepatitis A Vaccines Aged Out No long er eligible based on patient's age to complete this topic Hepatitis B Vaccines Aged Out No long er eligible based on patient's age to complete this topic IPV Vaccines Aged Out No longer eligi ble based on patient's age to complete this topic MMR Vaccines Aged Out No longer eligi ble based on patient's age to complete this topic Meningococcal ACWY Vaccine Aged Out N o longer eligible based on patient's age to complete this topic Meningococcal B Vaccine Aged Out No l onger eligible based on patient's age to complete this topic RSV Immunization Patients Under 20 months Aged Out No longer eligible based on patient's age to complete this topic Varicella Vaccines Aged Out No longer eligible based on patient's age to complete this topic Procedures Procedure Name Priority Date/Time Associated Diagnosis Comments COLONOSCOPY Routine 08/21/2024 7:40 AM EST Colon cancer screening from Last 3 Months or Most Recently Relevant to Health Maintenance Results * COLONOSCOPY Anesthesia - MAC; [facility] ENDOSCOPY (08/21/2024 7:40 AM EST) Anatomical Region Laterality Modality Other 08/21/2024 7:27 AM EST Impressions 08/21/2024 7:41 AM EST - Non-bleeding internal hemorrhoids. - The examination was otherwise normal on direct and retroflexion views. - No specimens collected. Recommendation: - Discharge patient to home. - Resume previous diet. - Continue present medications. - Repeat colonoscopy in 10 years for surveillance. - Return to GI office PRN. Narrative 08/21/2024 7:41 AM EST [facility] Patient Name: Pepe Tarango Procedure Date: 08/21/2024 7:27 AM Date of : 1965 Age: 58 Room: ROOM 14 Gender: Male Note Status: Finalized Attending MD: Riley Hale MD, Procedure Date No Time: 08/21/2024 Procedure: Colonoscopy Indications: Screening for colorectal malignant neoplasm Providers: Riley Hale MD Referring MD: Riley Hale MD Medicines: Monitored Anesthesia Care Complications: No immediate complications. Estimated Blood Loss: Estimated blood loss: none. Procedure: Pre-Anesthesia Assessment: - ASA Grade Assessment: II - A patient with mild systemic disease. - After reviewing the risks and benefits, the patient was deemed in satisfactory condition to undergo the procedure. After I obtained informed consent, the scope was passed under direct vision. Throughout the procedure, the patient's blood pressure, pulse, and oxygen saturations were monitored continuously.The Colonoscope was introduced through the anus and advanced to the cecum, identified by appendiceal orifice and ileocecal valve. The colonoscopy was performed without difficulty. The patient tolerated the procedure well. The quality of the bowel preparation was good. Findings: Non-bleeding internal hemorrhoids were found during retroflexion. The hemorrhoids were small. The exam was otherwise without abnormality on direct and retroflexion views. Procedure Code(s): --- Professional --- 17188, Colonoscopy, flexible; diagnostic, including collection of specimen(s) by brushing or washing, when performed (separate procedure) Diagnosis Code(s): --- Professional --- Z12.11, Encounter for screening for malignant neoplasm of colon CPT copyright 2020 [employer]. All rights reserved. The codes documented in this report are preliminary and upon manager field investigations review may be revised to meet current compliance requirements. Riley Hale MD 08/21/2024 7:41:06 AM This report has been signed electronically.Riley Hale MD Number of Addenda: 0 Note Initiated On: 08/21/2024 7:27 AM Scope In: Scope Out: Endoscopy Department at [facility] - [address] [place] [id number] Procedure Note Riley Hale MD - 08/21/2024 [facility] Patient Name: Pepe Tarango Procedure Date: 08/21/2024 7:27 AM Date of : 1965 Age: 58 Room: ROOM 14 Gender: Male Note Status: Finalized Attending MD: Riley Hale MD, Procedure Date No Time: 08/21/2024 Procedure: Colonoscopy Indications: Screening for colorectal malignant neoplasm Providers: Riley Hale MD Referring MD: Riley Hale MD Medicines: Monitored Anesthesia Care Complications: No immediate complications. Estimated Blood Loss: Estimated blood loss: none. Procedure: Pre-Anesthesia Assessment: - ASA Grade Assessment: II - A patient with mild systemic disease. - After reviewing the risks and benefits, thepatient was deemed in satisfactory condition to undergo the procedure. After I obtained informed consent, the scope was passed under direct vision. Throughout theprocedure, the patient's blood pressure, pulse, and oxygen saturations were monitored continuously.The Colonoscope was introduced through the anus and advanced to the cecum, identified by appendiceal orifice and ileocecal valve. The colonoscopy was performed without difficulty. The patient tolerated the procedure well. The quality of the bowel preparation was good. Findings: Non-bleeding internal hemorrhoids were found during retroflexion. The hemorrhoids were small. The exam was otherwise without abnormality ondirect and retroflexion views. Procedure Code(s): --- Professional --- 93253, Colonoscopy, flexible; diagnostic, including collection of specimen(s) by brushing or washing,when performed (separate procedure) Diagnosis Code(s): --- Professional --- Z12.11, Encounter for screening for malignantneoplasm of colon CPT copyright 2020 [employer]. All rights reserved. The codes documented in this report are preliminary and upon manager field investigations reviewmay be revised to meet current compliance requirements. Riley Hale MD 08/21/2024 7:41:06 AM This report has been signed electronically.Riley Hale MD Number of Addenda: 0 Note Initiated On: 08/21/2024 7:27 AM Scope In: Scope Out: Endoscopy Department at [facility] - [address] [place] [id number] IMPRESSION: - Non-bleeding internal hemorrhoids. - The examination was otherwise normal on directand retroflexion views. - No specimens collected. Recommendation: - Discharge patient to home. - Resume previous diet. - Continue present medications. - Repeat colonoscopy in 10 years forsurveillance. - Return to GI office PRN. us Riley Hale MD GI~PROCEDURE ORDERABLES Final Result from Last 3 Months or Most Recently Relevant to Health Maintenance Insurance [facility] Care Teams Screen Printing Supervisor Relationship Specialty Start Date End Date Ramesh Reese MD [address] [place] [address] PCP - General Internal Medicine 05/18/24
== END 2025-06-30 16:40 | disposition home or self-care (01) ==
LOC: HO.HUSH 15:29
PROVIDERS: PCP Internal Medicine; Visit Provider Urology
DX: E11.69 Type 2 diabetes mellitus with other specified complication (principal); N52.1 Erectile dysfunction due to diseases classified elsewhere; N20.0 Calculus of kidney; N40.1 Benign prostatic hyperplasia with lower urinary tract symptoms; N13.8 Other obstructive and reflux uropathy
CPT/HCPCS: 99213